=== PATIENT | male | born 1960 | race Caucasian/White ===

== ENCOUNTER 2020-03-03 16:57 | Emergency (ER) | payer MEDICARE ==
[~2020-03-03] VITALS: Ht 182.9 cm; Wt 145.2 kg
[2020-03-03] MEDS ORDERED: ASA81BEC PO (17:10)
[2020-03-03] MEDS ORDERED: OMEPRAZOLE40 MG PO (17:10)
[2020-03-03] MEDS ORDERED: JANTOVEN7.5 MG PO (17:11)
[2020-03-03] MEDS ORDERED: HYDROCHLOROTH12.5 M1 PO (17:11)
[2020-03-03] MEDS ORDERED: MAGNESIUM250 M1 PO (17:12)
[2020-03-03] MEDS ORDERED: METFORMIN HCL500 M3 PO (17:12)
[2020-03-03] MEDS ORDERED: JARDIANCE25 MG PO (17:12)
[2020-03-03] MEDS ORDERED: MIRAPEX0.125 MG PO (17:13)
[2020-03-03] MEDS ORDERED: HYDROCODON-ACE1 EA10 PO (18:51)
[2020-03-03 19:02] VITALS: BP 132/75
== END 2020-03-03 19:03 | disposition home or self-care (01) ==
LOC: M.ERS 16:57
DX: S70.02XA Contusion of left hip, initial encounter (principal); E11.9 Type 2 diabetes mellitus without complications; Z86.73 Personal history of transient ischemic attack (TIA), and cerebral infarction without residual deficits; Z91.041 Radiographic dye allergy status; Z86.711 Personal history of pulmonary embolism; Z88.5 Allergy status to narcotic agent; W01.0XXA Fall on same level from slipping, tripping and stumbling without subsequent striking against object, initial encounter; Y93.89 Activity, other specified; Y92.89 Other specified places as the place of occurrence of the external cause; Y99.8 Other external cause status

== ENCOUNTER 2020-08-11 23:15 | Observation (INO) | payer OTHER ==
[~2020-08-11] VITALS: Ht 182.9 cm; Wt 143.3 kg
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
[~2020-08-11 23:15] MED LIST: ASA81BEC PO; HYDROCHLOROTH12.5 M1 PO; HYDROCODON-ACE1 EA10 PO; JANTOVEN7.5 MG PO; JARDIANCE25 MG PO; MAGNESIUM250 M1 PO; METFORMIN HCL500 M3 PO; MIRAPEX0.125 MG PO; OMEPRAZOLE40 MG PO
[2020-08-11 23:22] VITALS: BP 136/81
[2020-08-11 23:58] LABS: ABSOLUTE BASOPHILS 0.1 thou/uL (0.0-0.2); ABSOLUTE EOSINOPHILS 0.3 thou/uL (0.0-0.7); ABSOLUTE LYMPHOCYTES 2.4 thou/uL (0.8-5.3); ABSOLUTE MONOCYTES 0.7 thou/uL (0.0-1.2); ABSOLUTE NEUTROPHILS 4.7 thou/uL (1.6-8.1); EOSINOPHILS 3.7 %; HEMATOCRIT 39.8 % (42.0-52.0); HEMOGLOBIN 13.1 gm/dL (14.0-18.0); LYMPHOCYTES 29.5 %; MCHC 32.8 g/dL (28.0-37.0); MCV 76.1 fL (80.0-100.0); MONOCYTES 9.1 %; MPV 8.7 fl. (7.2-11.1); NUCLEATED RBCS 0 /100WBC; PLATELET COUNT* 236 thou/uL (150-400); POLYS 56.7 %; RBC 5.23 mil/uL (4.50-6.00); RDW-CV 16.6 % (10.5-14.5); WBC 8.2 thou/uL (4.0-11.0)
[2020-08-12 00:04] LABS: CALCIUM 8.3 mg/dL (8.5-10.1); CREATININE 1.4 mg/dL (0.6-1.3); POTASSIUM 3.8 mmol/L (3.5-5.1)
[2020-08-12 00:07] LABS: INR 2.6; PROTIME 25.8 Seconds (9.20-11.50)
[2020-08-12 00:15] LABS: ALBUMIN 3.4 g/dL (3.4-5.0); MAGNESIUM 1.8 mg/dL (1.8-2.4); TOTAL BILIRUBIN 0.2 mg/dL (<0.1-1.0); TOTAL PROTEIN 7.1 g/dL (6.4-8.2)
[2020-08-12 01:36] LABS: URINE BILIRUBIN NEGATIVE (Negative); URINE BLOOD 3+ (Negative); URINE CLARITY CLEAR; URINE COLOR YELLOW; URINE GLUCOSE-RANDOM 3+ (Negative); URINE KETONES NEGATIVE (Negative); URINE LEUKOCYTES-REFLEX NEGATIVE (Negative); URINE NITRITE-REFLEX NEGATIVE (Negative); URINE PROTEIN NEGATIVE (Negative); URINE SPECIFIC GRAVITY 1.015 (1.005-1.030); URINE UROBILINOGEN 0.2 E.U./dl (0.2-1.0)
[2020-08-12 01:59] LABS: BACTERIA-REFLEX None Seen /HPF (None Seen); CASTS None Seen /LPF (None Seen); MUCUS 0-3 Light strn/LPF (None Seen); SQUAMOUS 0-3 Few /LPF (0-3); URINE RBC >20 Many /HPF (0-2); URINE WBC-REFLEX None Seen /HPF (0-5)
[2020-08-12 02:00] LABS: CRYSTALS None Seen /LPF (None Seen)
[2020-08-12 04:06] VITALS: BP 111/69
[2020-08-12 08:08] VITALS: BP 112/81
[2020-08-12 08:25] VITALS: BP 134/83
--- NOTE | 2020-08-12 10:23 | EKG ---
[place] [address] ELECTROCARDIOGRAM REPORT Name: LUCINAJUSTYN L Room: [address] M.R.#: [id number] Admission: 08/12/20 Attend Phys: Porter Redman Discharge: Date of : 56 Date of Service: 08/11/202321 Report #: [id number] THIS REPORT FOR: //name// [facility] ED Test Date: 2020-08-11 Test Time: 23:22:40 Pat Name: JUSTYN VERDUGO Department: Room: [facility] Gender: M Promotion Manager: ARY : 1960 Requested By: Odette Tavares Order Number: [id number] MD: Bogdan Pierre Measurements Intervals Merkel Rate: 106 P: 47 WA: 191 QRS: -45 QRSD: 102 T: 39 QT: 357 QTc: 475 Interpretive Statements Sinus tachycardia LAD, consider left anterior fascicular block Abnormal R-wave progression, late transition Baseline wander in lead(s) II,III,aVR,aVL,aVF,V3,V4 No previous ECG available for comparison Electronically Signed On 08-12-2020 10:23:29 CDT by Bogdan Pierre [email or web address] <ELECTRONICALLY SIGNED> By: Bogdan Pierre MD, [facility] 08/12/20 1023 21 21 Bogdan Pierre MD, [facility] /EPI
--- NOTE | 2020-08-12 10:57 | NUR ---
RECEIVED REPORT AROUND 0800 FROM LUANNE OLIVARES. PT ON UNIT AT 0825. HEART MONITOR ATTACHED AT. IV INTACT. PT UP ADLIB. AT BEDSIDE. ADMIT DONE PRIOR TO COMING UP HERE. MEDS GIVEN PER MAY. DR MOYA SAW PT. OK FOR D/C. DR LEBLANC TOLD AND AWARE. FOOD GIVEN TO PT. CALL LIGHT WITH IN REACH. WILL CONTINUE TO MONITOR.
[2020-08-12 11:02] VITALS: BP 134/83
--- NOTE | 2020-08-12 11:26 | NUR ---
DISCHARGE ORDERS RECEIVED. IV TAKEN OUT. HEART MONITOR OFF. DISCHARGE PAPERWORK GONE OVER WITH PT AND . COMMUNICATED UNDERSTANDING. PT LEFT UNIT VIA AMBULATORY WITH NURSING STAFF AND ALL BELONGINGS AT 1115.
[2020-08-13 05:36] LABS: GLYCOHEMOGLOBIN (HGB A1C) 7.3 % (4.8-5.6)
== END 2020-08-12 11:22 | disposition home or self-care (01) ==
LOC: M.ERS 23:15 → M.TBA-ER 08-12 01:36 → M.2W 08-12 08:25
PROVIDERS: Emergency Medicine; ADMIT Internal Medicine; ATTEND Internal Medicine
DX: R07.89 Other chest pain (principal); Z20.822 Contact with and (suspected) exposure to COVID-19; E11.9 Type 2 diabetes mellitus without complications; N17.9 Acute kidney failure, unspecified; E66.9 Obesity, unspecified; Z86.711 Personal history of pulmonary embolism; Z79.01 Long term (current) use of anticoagulants; Z79.82 Long term (current) use of aspirin; Z79.899 Other long term (current) drug therapy; Z68.41 Body mass index [BMI] 40.0-44.9, adult

== ENCOUNTER 2021-01-08 13:39 | Emergency (ER) | payer OTHER ==
[~2021-01-08] VITALS: Ht 182.9 cm; Wt 145.2 kg
[2021-01-08 17:50] VITALS: BP 162/87
== END 2021-01-08 17:51 | disposition home or self-care (01) ==
LOC: M.ERS 13:39
DX: R60.0 Localized edema (principal); M79.672 Pain in left foot; E11.40 Type 2 diabetes mellitus with diabetic neuropathy, unspecified; Z86.711 Personal history of pulmonary embolism; Z79.01 Long term (current) use of anticoagulants; Z98.890 Other specified postprocedural states; Z96.652 Presence of left artificial knee joint; Z79.82 Long term (current) use of aspirin; Z79.899 Other long term (current) drug therapy; Z91.041 Radiographic dye allergy status; Z88.5 Allergy status to narcotic agent

== ENCOUNTER 2021-01-12 09:31 | Emergency (ER) | payer OTHER ==
[~2021-01-12] VITALS: Ht 182.9 cm; Wt 142.9 kg
[2021-01-12] MEDS ORDERED: TUMERSAID TABL1 EACH PO (09:45)
[2021-01-12] MEDS ORDERED: NEURONTIN300 MG PO (09:45)
[2021-01-12] MEDS ORDERED: MAGNESIUM250 M1 PO (09:45)
[2021-01-12] MEDS ORDERED: COZAAR 25 MG TA25 M2 PO (09:45)
[2021-01-12] MEDS ORDERED: REQUIP 1 MG TABL1 M1 PO (09:45)
[2021-01-12] MEDS ORDERED: FOLIC ACID1 MG PO (09:46)
[2021-01-12] MEDS ORDERED: PREDNISONE50 MG PO (10:11)
[2021-01-12] MEDS ORDERED: FLEXERIL PO (10:11)
[2021-01-12 10:20] VITALS: BP 112/65
== END 2021-01-12 10:20 | disposition home or self-care (01) ==
LOC: M.ERS 09:31
DX: M54.12 Radiculopathy, cervical region (principal); E11.9 Type 2 diabetes mellitus without complications; Z98.890 Other specified postprocedural states; Z96.652 Presence of left artificial knee joint; Z86.73 Personal history of transient ischemic attack (TIA), and cerebral infarction without residual deficits; Z79.82 Long term (current) use of aspirin; Z79.01 Long term (current) use of anticoagulants; Z79.899 Other long term (current) drug therapy; Z91.041 Radiographic dye allergy status; Z88.5 Allergy status to narcotic agent